=== PATIENT | male | born 2000 | race American Indian/Alaskan Native ===

== ENCOUNTER 2020-10-14 05:49 | Emergency (ER) | payer OTHER ==
[2020-10-14] MEDS ORDERED: IBUPROFEN 600 MG TAB PO ONE (06:11)
[2020-10-14] MEDS ORDERED: DIPHtheria,PERTUSSIS(ACELL),TETANUS VACCINE/PF 0.5 ML VIAL IM ONE (06:11)
[2020-10-14 06:21] VITALS: BP 143/51
--- NOTE | 2020-10-14 08:48 | XRay Report ---
RIGHT HAND 3 VIEWS INDICATION / CLINICAL INFORMATION: right middle finger injury. COMPARISON: None available. FINDINGS: No significant skeletal abnormality Signer Name: Rene Morris MD FACR Signed: 10/14/2020 8:43 AM Workstation Name: [id number]
== END 2020-10-14 07:30 | disposition left against medical advice (07) ==
LOC: ED 05:49
DX: M79.644 Pain in right finger(s) (principal); Z53.21 Procedure and treatment not carried out due to patient leaving prior to being seen by health care provider